=== PATIENT | female | born 1940 | race Caucasian/White ===

== ENCOUNTER 2022-04-29 05:02 | Emergency (ER) | payer BC, SELFPAY ==
[2022-04-29 05:04] VITALS: BP 120/90; PULSE 74; RESP 16; TEMP 36.6; O2SAT 100; BMI 21.4
--- NOTE | 2022-04-29 05:19 | XRR_ITS ---
PROCEDURE INFORMATION: Exam: XR Abdomen Exam date and time: 04/29/2022 6:35 AM Age: 82 years old Clinical indication: Constipation; Additional info: Abd fullness, constipation TECHNIQUE: Imaging protocol: Radiologic exam of the abdomen. Views: Frontal supine view of the abdomen. 1 View. COMPARISON: No relevant prior studies available. FINDINGS: Gastrointestinal tract: No abnormally dilated air-filled bowel loops identified. Intraperitoneal space: The entirety of the upper abdomen is not included in the field of view. Organs: Oval-shaped dense object measuring 11 x 8 cm centered in the pelvis. Bones/joints: Unremarkable. XR/XR KUB portable [id number] IMPRESSION: 1. Nonobstructive bowel gas pattern. 2. Oval-shaped dense object measuring 11 x 8 cm centered in the pelvis possibly related to a large uterine fibroid or other calcified pelvic mass. Recommend follow-up evaluation.
--- NOTE | 2022-04-29 05:22 | ED_ITS ---
HPI - Abdominal Pain General: Chief Complaint: Abdominal Pain Stated Complaint: Abdomen Pain Time Seen by Provider: 04/29/22 05:08 Source: patient History of Present Illness: 82-year-old female who called an ambulance at 5:00 in the morning due to a feeling of abdominal bloating and fullness with some dizziness. She states if I was going to diagnose myself, I would say that I have a bowel blockage . She notes that she has taken stool softeners as well as milk of magnesia without improvement in constipation symptoms she has been having. She denies any fever. She notes vomiting x1 last week, but not recently. No blood in the stool. No history of belly surgery. MD elicited complaint: abdominal pain Pertinent past history: other Onset (ago): day(s) Pain Consistency: constant Location: Diffuse Severity: mild Quality: aching and fullness Radiation: none Migration to: no migration Exacerbating factors: nothing Relieving factors: nothing Associated Symptoms: Reports change in bowel habits and constipation; Denies diarrhea, fever(s), hematochezia and vomiting Review of Systems Const: Denies: fever(s) Eyes: Denies: change in vision Card: Denies: chest pain or palpitations Resp: Denies: dyspnea, productive cough or non-productive cough GI: Reports: constipation and change in bowel habits; Denies: vomiting, diarrhea or hematochezia Musc: Denies: neck pain Neuro: Reports: dizziness; Denies: headache(s) Psych: Reports: anxiety Physical Exam Const: COMMON NORMALS: no acute distress GENERAL APPEARANCE: cooperative; not ill appearing and not frail appearing HENMT: COMMON NORMALS: normocephalic, atraumatic and Normal external nose present HEAD & SCALP: normocephalic and atraumatic FACE & SINUS: normal facial exam and face symmetric NOSE: Normal external nose present Eye: COMMON NORMALS: Equal, round and reactive pupils present and EOMs intact bilaterally PUPIL: Yes Equal, round and reactive pupils present Neck/C-Spine: GENERAL: Yes trachea midline Chest: CHEST: Yes Symmetrical chest wall rise Resp: COMMON NORMALS: normal respiratory effort, No retractions, No use of accessory muscles and clear to auscultation bilaterally AUSCULTATION: clear to auscultation bilaterally Cardio: COMMON NORMALS: regular rate and regular rhythm RATE: regular rate RHYTHM: regular rhythm GI: COMMON NORMALS: Soft to palpation INSPECTION: Yes abdominal distension (Mild) AUSCULTATION: Yes Hypoactive bowel sounds present PALPATION: Yes Soft to palpation : COMMON NORMALS: Yes no CVA tenderness BLADDER/KIDNEY EXAM: Yes no CVA tenderness Back/Pelvis: COMMON NORMALS: no CVA tenderness Extremity: COMMON NORMALS: no pedal edema Neuro: ANNA COMA SCALE: document GCS findings Mead coma scale eye opening: Spontaneous [place] coma scale verbal response: Orientated [place] coma scale motor response: Obey commands Nana coma scale total score: 15 SENSORY EXAM: Yes extremities (intact) Psych: COMMON NORMALS: speech normal SPEECH: Yes normal speech Skin: COMMON NORMALS: no rashes or lesions noted GENERAL SKIN EXAM: no r ashes or lesions noted Course Vital Signs: Vital signs: Vital Signs Temperature 97.9 F 04/29/22 05:04 Pulse Rate 74 04/29/22 05:04 Respiratory Rate 16 04/29/22 05:04 Blood Pressure 120/90 04/29/22 05:04 Pulse Oximetry 100 04/29/22 05:04 Oxygen Delivery Me thod 04/29/22 05:32 MDM - Abdominal Pain Medical Decision Making 82-year-old female here with abdominal fullness. Vital signs are essentially normal. CBC is remarkable for a white blood cell count of 12. BMP is not remarkable. Liver enzymes are normal. Lipase is normal. Urinalysis is negative. KUB shows a nonobstructive bowel gas pattern but with an oval-shaped dense object measuring 11 x 8 cm in the pelvis. CT is ordered, and CT read is pending. CT confirms a calcified uterine fibroid. Discussed findings with the patient and her family. We will allow her discharge with a bowel prep, and encourage stool softeners. Case management will be asked to make the patient an appointment with women's health. The patient has a primary care physician at [facility] in [place], and may seek consultation there as well. Lab Data 04/29/22 05:15 04/29/22 05:15 Labs/Radiology: Radiology Impressions KUB X-Ray 04/29/22 05:19 IMPRESSION: 1. Nonobstructive bowel gas pattern. 2. Oval-shaped dense object measuring 11 x 8 cm centered in the pelvis possibly related to a large uterine fibroid or other calcified pelvic mass. Recommend follow-up evaluation. Abdomen/Pelvis CT 04/29/22 05:39 IMPRESSION: 1. No acute abdominopelvic abnormality identified. 2. Large calcified uterine fibroid. Laboratory Results WBC 12.2 10^3/uL (4.0-10.0) H 04/29/22 05:15 RBC 4.98 10^6/uL (4.1-5.3) 04/29/22 05:15 Hgb 15.3 g/dL (11.5-15.3) 04/29/22 05:15 Hct 46.1 % (37.0-47.0) 04/29/22 05:15 MCV 92.6 fl (81-99) 04/29/22 05:15 MCH 30.7 pg (28.0-34.0) 04/29/22 05:15 MCHC 33.2 g/dL (30.0-36.0) 04/29/22 05:15 RDW 13.4 % (12.1-15.1) 04/29/22 05:15 Plt Count 372 10^3/cmm (130-400) 04/29/22 05:15 MPV 9.6 fL (7.4-10.4) 04/29/22 05:15 Neut % (Auto) 81.4 % 04/29/22 05:15 Lymph % (Auto) 11.0 % 04/29/22 05:15 [place] % (Auto) 5.9 % 04/29/22 05:15 Eos % (Auto) 0.7 % 04/29/22 05:15 Baso % (Auto) 0.4 % 04/29/22 05:15 Neut # (Auto) 9.91 10^3/uL (1.8-7.7) H 04/29/22 05:15 Lymph # (Auto) 1.3 10^3/uL (0.8-4.8) 04/29/22 05:15 [place] # (Auto) 0.7 10^3/uL (0.2-0.9) 04/29/22 05:15 Eos # (Auto) 0.1 10^3/uL (0.0-0.8) 04/29/22 05:15 Baso # (Auto) 0.1 10^3/uL (0.0-0.1) 04/29/22 05:15 Nucleated RBC % (auto) 0 % 04/29/22 05:15 Nucleated RBCs # 0.0 /100WBC 04/29/22 05:15 Sodium 138 mmol/L (136-145) 04/29/22 05:15 Potassium 4.1 mmol/L (3.5-5.1) 04/29/22 05:15 Chloride 103 mmol/L (98-107) 04/29/22 05:15 Carbon Dioxide 24 mmol/L (22-29) 04/29/22 05:15 Anion Gap 15.1 (5-19) 04/29/22 05:15 BUN 10 mg/dL (8-23) 04/29/22 05:15 Creatinine 0.5 mg/dL (0.5-0.9) 04/29/22 05:15 GFR Calculation Not Reportable 04/29/22 05:15 Glucose 104 mg/dL (65-115) 04/29/22 05:15 Calculated Osmolality 285 mOsm/kg (285-295) 04/29/22 05:15 Calcium 9.5 mg/dL (8.5-10.5) 04/29/22 05:15 Total Bilirubin 0.4 mg/dL (0.15-1.2) 04/29/22 05:15 AST 10 U/L (0-32) 04/29/22 05:15 ALT 13 U/L (0-33) 04/29/22 05:15 Alkaline Phosphatase 64 U/L (35-105) 04/29/22 05:15 C-Reactive Protein 3.0 mg/L (0.0-4.9) 04/29/22 05:15 Total Protein 6.6 g/dL (6.6-8.7) 04/29/22 05:15 Albumin 4.1 g/dL (3.5-5.2) 04/29/22 05:15 Globulin 2.5 g/dL (1.3-4.6) 04/29/22 05:15 Lipase 34 U/L (13-60) 04/29/22 05:15 Urine Color Yellow (Yellow) 04/29/22 05:55 Urine Appearance Clear (CLEAR) 04/29/22 05:55 Urine pH 8 (5-7) H 04/29/22 05:55 Ur Specific [place] 1.010 (1.005-1.030) 04/29/22 05:55 Urine Protein Neg (Negative) 04/29/22 05:55 Urine Glucose (UA) Norm (Normal) 04/29/22 05:55 Urine Ketones Negative (Negative) 04/29/22 05:55 Urine Blood Neg (Negative) 04/29/22 05:55 Urine Nitrate Negative (Negative) 04/29/22 05:55 Urine Bilirubin Neg (Negative) 04/29/22 05:55 Prot Sulfosalicylic Acd Negative (Negative) 04/29/22 05:55 Urine Urobilinogen Neg mg/dL (Negative) 04/29/22 05:55 Ur Leukocyte Esterase Negative (Negative) 04/29/22 05:55 Discharge Plan Discharge Patient Disposition: Home Clinical Impression: Uterine fibroid Condition: Stable Prescriptions: New magnesium citrate Solution 296 ml PO DAILY Qty: 296 0RF Discharge Orders: Discharge ED (Routine); Ordered 04/29/22 Ordered By: Ladarius Hollins Discharge Diet: Advance as tolerated Discharge Activity: Resume usual activity Patient Instructions: Fibroids, Constipation (ED) Activity Restrictions/Additional Instructions: Case management has been asked to refer you to our women's health clinic here in [place]. If you wish to seek consultation elsewhere such as [place], you may do so. Our suggestion is that you use the prescribed a bowel prep to treat constipation, and then stay on a stool softener or MiraLAX [id number]. Return for fever, vomiting liquids, worsening pain, any other symptoms. Coding Level of Care Code ED Echocardiography Radiology Technologist for Brittney Fwd Exam Comprehensive
[2022-04-29 05:31] LABS: Basophils # 0.1 10^3/uL (0.0-0.1); Basophils % 0.4 %; Eosinophils # 0.1 10^3/uL (0.0-0.8); Eosinophils % 0.7 %; Hematocrit 46.1 % (37.0-47.0); Hemoglobin 15.3 g/dL (11.5-15.3); Lymphocytes # 1.3 10^3/uL (0.8-4.8); Mean Corpuscular HGB Conc 33.2 g/dL (30.0-36.0); Mean Corpuscular Hemoglobin 30.7 pg (28.0-34.0); Mean Corpuscular Volume 92.6 fl (81-99); Mean Platelet Volume 9.6 fL (7.4-10.4); Monocytes # 0.7 10^3/uL (0.2-0.9); Monocytes % 5.9 %; Neutrophils # 9.91 10^3/uL (1.8-7.7); Neutrophils % 81.4 %; Nucleated Red Blood Cells % 0 %; Platelet Count 372 10^3/cmm (130-400); Red Blood Count 4.98 10^6/uL (4.1-5.3); Red Cell Distribution Width 13.4 % (12.1-15.1); White Blood Count 12.2 10^3/uL (4.0-10.0)
[2022-04-29] MEDS: sodium chloride 0.9% 1,000 ML 999 ML IV (05:34)
--- NOTE | 2022-04-29 05:39 | CTR_ITS ---
PROCEDURE INFORMATION: Exam: CT Abdomen And Pelvis With Contrast Exam date and time: 04/29/2022 6:06 AM Age: 82 years old Clinical indication: Constipation; Abdominal pain; Generalized; Additional info: Abd pain, fullness. Abn kub TECHNIQUE: Imaging protocol: Computed tomography of the abdomen and pelvis with contrast. Radiation optimization: All CT scans at this facility use at least one of these dose optimization techniques: automated exposure control; mA and/or kV adjustment per patient size (includes targeted exams where dose is matched to clinical indication); or iterative reconstruction. Contrast material: OMNI 350; Contrast volume: 100 ml; Contrast route: INTRAVENOUS (IV); COMPARISON: No relevant prior studies available. RADIATION DOSE METRICS: Total DLP (mGy-cm): 324.23 FINDINGS: Liver: The liver is normal in size and contour. Gallbladder and bile ducts: The gallbladder is distended with normal wall thickness and does not demonstrate calcified gallstones. No intra- or extra-hepatic biliary ductal dilatation. Pancreas: The pancreas appears normal. Spleen: The spleen appears normal. Adrenal glands: The adrenals appear normal. Kidneys and ureters: The kidneys enhance symmetrically and empty into non-dilated ureters. Stomach and bowel: The stomach is unremarkable. The small bowel loops are not abnormally dilated. The large bowel loops are not abnormally dilated. Appendix: The appendix appears normal. Intraperitoneal space: No ascites or significant fluid collection. Vasculature: The aorta is nonaneurysmal. The IVC appears normal. Lymph nodes: There are no enlarged lymph nodes. Urinary bladder: The bladder is distended and demonstrates no focal contour abnormality. Reproductive: 11 x 8 x 7 cm calcified mass in the pelvis likely a large calcified fibroid. Multiple additional calcified masses arising from the uterus consistent with additional smaller uterine fibroids. Bones/joints: Unremarkable. Soft tissues: 8 mm fat containing umbilical hernia. CT/CT abdomen pelvis w con* [id number] IMPRESSION: 1. No acute abdominopelvic abnormality identified. 2. Large calcified uterine fibroid.
[2022-04-29 05:51] LABS: Alanine Aminotransferase 13 U/L (0-33); Albumin Level 4.1 g/dL (3.5-5.2); Alkaline Phosphatase 64 U/L (35-105); Anion Gap 15.1 (5-19); Aspartate Amino Transferase 10 U/L (0-32); Blood Urea Nitrogen 10 mg/dL (8-23); Calcium 9.5 mg/dL (8.5-10.5); Carbon Dioxide 24 mmol/L (22-29); Chloride 103 mmol/L (98-107); Globulin 2.5 g/dL (1.3-4.6); Glucose 104 mg/dL (65-115); Lipase 34 U/L (13-60); Osmolality Calculated 285 mOsm/kg (285-295); Potassium 4.1 mmol/L (3.5-5.1); Sodium 138 mmol/L (136-145); Total Bilirubin 0.4 mg/dL (0.15-1.2); Total Protein 6.6 g/dL (6.6-8.7)
[2022-04-29 06:04] LABS: Add Urine Microscopic? NO; Charge for UA Resulting for Rev
[2022-04-29 06:10] LABS: Bilirubin Urine Neg (Negative); Blood Urine Neg (Negative); Glucose Urine UA Norm (Normal); Ketones Urine Negative (Negative); Leukocyte Esterase Urine Negative (Negative); Nitrate Urine Negative (Negative); Protein Urine Neg (Negative); Sulfosalicylic Acid Urine Negative (Negative); Urine Appearance Clear (CLEAR); Urine Color Yellow (Yellow); Urobilinogen Urine Neg (Negative); pH Urine 8 (5-7)
[2022-04-29] MEDS: iohexol 350 mg/mL 500 mL Btl (per mL) IV (06:10)
[2022-04-29 06:59] VITALS: BP 121/70; PULSE 73; O2SAT 100
== END 2022-04-29 07:00 | disposition home or self-care (01) ==
PROVIDERS: Emergency Provider Emergency Medicine
DX: D25.9 Leiomyoma of uterus, unspecified (principal)
CPT/HCPCS: 74018; 74177; 80053; 81003; 83690; 85025; 86140; 96360; 99285; J7030; Q9967